=== PATIENT | female | born 1960 | race Hispanic/Latino ===

== ENCOUNTER 2017-08-04 18:50 | Emergency (ER) | payer BC, OTHER ==
[~2017-08-04] VITALS: Ht 162.6 cm; Wt 82.1 kg
[~2017-08-04 18:50] MED LIST: ASPIRIN CHEW81 MG PO; LISINOPRIL10 MG PO; NITROGLYCERIN0.4 MG SL; PEPCID20 MG PO; PRAVASTATIN SOD10 MG PO; Z.1.CETIRIZINE HCL10 PO
--- NOTE | 2017-08-04 22:54 | Diagnostic Imaging Report ---
CHEST 2 VIEWS, Technique: CHEST 2 VIEWS Comparison: None Clinical history: \S\box fall on chest \S\[id number] \S\2024 DISCUSSION: Heart/mediastinum: Within normal limits Lungs/pleural spaces: No consolidation or edema, pleural effusion or pneumothorax. Other: Cholecystectomy clips. IMPRESSION: No acute abnormality Signed by: Dr Dalila Pascual MD on 08/04/2017 10:51 PM
[2017-08-04] MEDS ORDERED: ULTRAM 50MG50 MG PO (23:23)
[2017-08-04] MEDS ORDERED: CYCLOBENZAPRINE5 MG PO (23:23)
== END 2017-08-04 23:50 | disposition home or self-care (01) ==
LOC: ER 18:50
DX: S23.41XA Sprain of ribs, initial encounter (principal); W20.8XXA Other cause of strike by thrown, projected or falling object, initial encounter; Y92.008 Other place in unspecified non-institutional (private) residence as the place of occurrence of the external cause; I10 Essential (primary) hypertension; N18.9 Chronic kidney disease, unspecified; E78.5 Hyperlipidemia, unspecified; J45.909 Unspecified asthma, uncomplicated
CPT/HCPCS: 71020; 93005; 99284